=== PATIENT | male | born 1965 | race Caucasian/White ===

== ENCOUNTER → 2020-06-18 15:29 | Outpatient (CLI) | payer OTHER, SELFPAY ==
[2020-06-19 12:08] LABS: COVID19 Sendout Not Detected (Not Detect)
== END ==
PROVIDERS: Visit Provider Physician Assistant
DX: Z11.59 Encounter for screening for other viral diseases (principal)
CPT/HCPCS: 87635

== ENCOUNTER 2020-06-21 11:57 | Day surgery (SDC) | payer OTHER, SELFPAY ==
--- NOTE | 2020-06-21 11:38 | PM.HP.1 ---
History of Present Illness History of Present Illness Date Patient Seen: 06/21/20 Chief complaint: SDC Narrative: 54 Years Old Male seen today for consideration of a screening colonoscopy. There have been no lower GI symptoms suggesting disease such as change in bowel habits, bleeding, abdominal pain or anemia. There's been no family history of colon cancer or colon polyps. Overall health issues have been stable, including no major cardiac events for at least 6 weeks. Current Medications (verified): 1) Simvastatin 20 Mg Oral Tablet (Simvastatin) .... Take 1 tablet by mouth once a day at bedtime, for cholesterol control. 2) Valtrex 1 Gm Oral Tablet (Valacyclovir Hcl) .... 2 tabs twice daily for one day for onset of cold sore 3) Fluticasone Propionate 50 Mcg/act Nasal Suspension (Fluticasone Propionate) .... One spray each nostril daily, for allergy symptoms 4) Loratadine 10 Mg Oral Tablet (Loratadine) .... Take one by mouth every day for allergies as needed 5) Aspirin Ec 81 Mg Oral Tablet Delayed Release (Aspirin) .... Take one daily to reduce cardiovascular risk Allergies (verified): 1) Penicillin (Critical) 2) * Grass and Pllen (Moderate) Past Medical History: Reviewed history from 11/18/2019 and no changes required: Hyperlipidemia cold sores Seasonal allergies Past Surgical History: Reviewed history from 11/18/2019 and no changes required: pilonidal cyst Family History: Reviewed history from 11/18/2019 and no changes required: Father - high cholesterol - age 79 Mother - age 76 No siblings Grandfather - age 55 ? heart disease Social History: Reviewed history from 11/18/2019 and no changes required: [employer] - Reyna Frye 10/1965 Patient History Medical History (Updated 06/21/20 @ 12:13 by Sarah Cortez RN) Cold sore (Acute) Hyperlipidemia (Acute) Seasonal allergies (Acute) Meds Home Medications and Allergies Home Medications Medication Instructions Recorded Confirmed Type aspirin [Aspirin Low Dose] 81 mg PO DAILY MDD risk 06/21/20 06/21/20 History fluticasone propionate 1 spray INTRANASAL DAILY 06/21/20 06/21/20 History loratadine 10 mg PO DAILY PRN 06/21/20 06/21/20 History simvastatin 20 mg PO BEDTIME 06/21/20 06/21/20 History valacyclovir [Valtrex] 2,000 mg PO BID PRN 06/21/20 06/21/20 History Allergies Allergy/AdvReac Type Severity Reaction Status Date / Time Penicillins Allergy Severe Difficulty Verified 06/21/20 12:28 Breathing Review of Systems Review of Systems ROS: Yes All systems reviewed with the patient and are negative except as otherwise documented Exam Narrative Exam Narrative: GENERAL: Alert and oriented, appearing stated age and in no acute distress. HEENT: Head normocephalic/atraumatic. Pupils equal, round, and reactive to light and accomodation. Extraocular muscles intact. Nasal mucosa moist, septum midline. Oral mucosa moist, no lesions. Neck soft and supple, no lymphadenopathy. LUNGS: Clear to ausculation bilaterally, no wheezes, rhonchi or rales. CV: Normal S1 and S2 with regular rate and rhythm, no audible murmurs, rubs or gallops. ABDOMEN: Soft, non-tender, non-distended, no organomegaly. Positive bowel sounds. EXTREMITIES: No clubbing, cyanosis, or edema. NEURO: Cranial nerves II through XII grossly intact, no focal deficits. PSYCH: Alert and oriented x 3. SKIN: No concerning lesions. Assessment & Plan Assessment & Plan narrative: 1. Screening for colon cancer Plan for colonoscopy. The nature and character of the procedure as well as anticipated results were discussed. The possibility of not completing the procedure was also discussed. Possible complications including aspiration pneumonia, bleeding, perforation and reaction to medications either for sedation or preparation and missed lesions were discussed. Questions were answered and proceeding to the colonoscopy was elected. Informed consent signed. I sincerely appreciate the referral allowing me to participate in this patient's care. Please contact me with any questions or concerns.
--- NOTE | 2020-06-21 11:41 | PM.OP.ENDO ---
Operative Date/Time/Diagnoses Date of procedure: 06/21/20 Pre-op diagnosis: 1. Screening for colon cancer Post-op diagnosis: other (1. Normal colonoscopy) Procedure & Clinicians Study performed: Colonoscopy Same procedure as scheduled: Yes Indications: 1. Screening for colon cancer Surgeon: Tracee Ellis Procedure Notes SCOAP/Timeout: 1:04 p.m. Procedure in detail: ENDOSCOPIST: Tracee Ellis MD Sedation RN: Edis Oleary RN Sedation start time: 1:05 p.m. Sedation end time: 3:33 p.m. PROCEDURE: Colonoscopy INDICATIONS: 1. Screening for colon cancer MEDICATION: Levsin 0.125 mg sublingual, incremental doses of Versed and fentanyl until appropriate level sedation achieved. ASA CLASS: 2 CECAL WITHDRAWAL TIME: 6 minutes COMPLICATIONS: None. EXTENT OF PROCEDURE: Cecum. QUALITY OF PREP: Good with portions of liquid stool. PROCEDURE: Prior to insertion of the colonoscope, a digital rectal examination was accomplished with circumferential palpation of the distal rectal mucosa without significant findings being noted. The high-definition colonoscope was passed into the rectum in the usual fashion and advanced over to the cecum without difficulty. The ileocecal valve, appendiceal stoma, and medial wall all could be inspected and no abnormalities were seen. ASCENDING COLON: As the colonoscope was withdrawn, care was taken to expose and inspect the haustral folds and no abnormalities were seen. HEPATIC FLEXURE: Normal, no polyps, diverticula or other abnormalities. TRANSVERSE COLON: Normal, no polyps, diverticula or other abnormalities. DESCENDING COLON: Normal, no polyps, diverticula or other abnormalities. SIGMOID COLON: Normal, no polyps, diverticula or other abnormalities. RECTUM: Normal. J maneuver was produced. There was no significant perianal disease. The J maneuver was broken. The remainder of the rectum was inspected and there was no external hemorrhoid disease. The scope was withdrawn. IMPRESSION: 1. Normal colonoscopy PLAN: 1. Repeat colonoscopy in 10 years. The possibility of a missed lesion including a malignancy has been discussed with the patient previously. Potential alarm symptoms have been discussed and should be reported immediately. Specimen(s): none sent Complications: none Post-procedure Recommendations: Colonscopy in 10 years Follow up: as needed Disposition: PACU
[2020-06-21 12:23] VITALS: BP 134/85; PULSE 72; RESP 20; TEMP 36.8; O2SAT 100; BMI 277.3
[2020-06-21] MEDS: LACTATED RINGERS 1,000 ML 200 ML IV (12:23)
[2020-06-21] MEDS: HYOSCYAMINE 0.125 MG TABLET PO (12:23)
[2020-06-21] MEDS: MIDAZOLAM 5 MG/5 ML VIAL IV (13:05)
[2020-06-21] MEDS: fentaNYL 250 MCG/5 ML INJ IV (13:12)
[2020-06-21 13:39] VITALS: BP 112/77; PULSE 85; RESP 16; TEMP 36.3; O2SAT 96
[2020-06-21 13:44] VITALS: BP 113/65; PULSE 69; RESP 18; O2SAT 97
[2020-06-21 13:48] VITALS: BP 114/75; PULSE 63; RESP 16; TEMP 36.2; O2SAT 96
== END 2020-06-21 14:04 | disposition home or self-care (01) ==
PROVIDERS: PCP Family Medicine; Referring Provider Student in an Organized Health Care Education/Training Program; Visit Provider Student in an Organized Health Care Education/Training Program
PROC: 0DJD8ZZ Inspection of Lower Intestinal Tract, Via Natural or Artificial Opening Endoscopic (ICD-10-PCS; CPT 45378; principal; 2020-06-21 13:00)
DX: Z12.11 Encounter for screening for malignant neoplasm of colon (principal)
CPT/HCPCS: 45378; J2250; J3010

== ENCOUNTER → 2022-09-19 14:57 | Outpatient (CLI) | payer OTHER, SELFPAY ==
--- NOTE | 2022-09-19 15:00 | DI.RAD.S_ITS ---
PROCEDURE: XR KNEE RT 3V INDICATIONS: RIGHT KNEE PAIN TECHNIQUE: 3 views of the knee were acquired. COMPARISON: None. FINDINGS: Bones: No fractures or dislocations. No suspicious bony lesions. Mild lateral medial compartment osteoarthritis. Moderate patellofemoral compartment osteoarthritis. Soft tissues: No joint effusion. No suspicious soft tissue calcifications. IMPRESSION: Right knee tricompartmental osteoarthritis as described above. Dictated by: Jacqui Manuel MD, PhD on 09/19/2022 at 15:47 Approved by: Jacqui Manuel MD, PhD on 09/19/2022 at 15:48
== END ==
PROVIDERS: PCP Family Medicine; Referring Provider Family Medicine; Visit Provider Family Medicine
DX: M25.561 Pain in right knee (principal); M17.11 Unilateral primary osteoarthritis, right knee
CPT/HCPCS: 73562

== ENCOUNTER → 2023-11-23 15:40 | Outpatient (CLI) | payer OTHER, SELFPAY ==
[2023-11-23 17:31] LABS: Add Manual Diff / Slide Review NO; Basophils Absolute Auto 0 /uL (0-100); Basophils Percent Auto 0.5 % (0-2); Eosinophils Absolute Auto 100 /uL (0-450); Eosinophils Percent Auto 2.3 % (2-4); Hematocrit 39.9 % (41-53); Hemoglobin 13.6 g/dL (13.5-17.5); Lymphocytes Absolute Auto 2300 /uL (1100-4500); Lymphocytes Percent Auto 37.8 % (25-40); Mean Corpuscular Volume 88.1 fL (80-100); Monocytes Absolute Auto 500 /uL (0-900); Monocytes Percent Auto 8.9 % (3-14); Neutrophils Absolute Auto 3100 /uL (1500-7000); Neutrophils Percent Auto 50.5 % (50-75); Platelet Count 205 X10^3/uL (150-400); Red Blood Cell Count 4.53 X10^6/uL (4.5-5.9); Red Cell Distribution Width 13.3 % (11.6-14.8); White Blood Cell Count 6.2 X10^3/uL (4.5-11.0)
[2023-11-23 18:31] LABS: Thyroid Stimulating Hormone 0.178 uIU/mL (0.47-4.68)
[2023-11-23 18:52] LABS: Prostate Specific Antigen 0.761 ng/mL (0.10-4.00)
== END ==
LOC: LAB 15:41
PROVIDERS: PCP Family Medicine; Referring Provider Family Medicine; Visit Provider Family Medicine
DX: Z00.00 Encounter for general adult medical examination without abnormal findings (principal); Z12.5 Encounter for screening for malignant neoplasm of prostate
CPT/HCPCS: 36415; 84153; 84443; 85025